=== PATIENT | male | born 1990 ===

== ENCOUNTER 2021-06-09 16:19 | Inpatient (IN) | payer SELFPAY ==
[2021-06-09 16:17] VITALS: BMI 24.4
[2021-06-09 16:51] VITALS: BP 112/78; PULSE 83; RESP 16; TEMP 36.8; O2SAT 98
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
[2021-06-09 20:41] VITALS: BP 120/77; PULSE 101; RESP 23; TEMP 37.2; O2SAT 92
[2021-06-10 06:00] VITALS: BP 119/80; PULSE 84; RESP 17; TEMP 37; O2SAT 98
--- NOTE | 2021-06-10 12:28 | NPU.GN ---
[facility] Group Topic: Depression Bingo /Worrisome thoughts General Mood of Group: Appropriate Cade participated and answered questions/ ask questions when addressed by staff.
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
[2021-06-10 14:00] VITALS: BP 124/74; PULSE 93; RESP 18; TEMP 36.6; O2SAT 98
[2021-06-10 22:00] VITALS: BP 113/70; PULSE 100; RESP 17; TEMP 36.5; O2SAT 97
[2021-06-11 06:00] VITALS: BP 112/71; PULSE 87; RESP 18; TEMP 36.6; O2SAT 99
--- NOTE | 2021-06-11 11:58 | NPU.GN ---
[facility] Topic: Self Medicating General Mood of Group: Cade appeared in good spirits and participated in group. CSS asked Cade if he knew what self medicating was and if that was something he did. Cade replied Yes because i don't have to think about what's going on at the time. CSS then asked if his choices to self medicate affected other in his life. Cade replied yes and I need to stop that's why when I go stay with my grandma I will start getting help. CSS encourage him to stick to the plan and make the changes need for a successful future.
[2021-06-11 14:00] VITALS: BP 128/78; PULSE 90; RESP 20; TEMP 36.9; O2SAT 97
[2021-06-11] MEDS: sertraline 50 mg Tablet PO (15:39)
--- NOTE | 2021-06-11 17:58 | PM.NPN ---
Subjective NPU Subjective: Interval history: Cade presents today continuing to downplay the significance of the situation at home reporting that his relationship with his girlfriend is also him and denying any major conflict between them at this point. He is not really embraced the issues surrounding his addiction and just talked everything up to robust panic attacks. He reports the medications are going well. Mental Status Exam MSE Comments: This is a well-nourished well-developed white male with hospital scrubs on and adequate grooming and eye contact. Notable ecchymosis around left eye. No abnormal movements except for mild psychomotor retardation. Cooperative with exam in no acute distress. Speech was normal rate, decreased volume. Mood described as pretty good, affect slightly subdued. Thought process organized. Thought content: Patient denied suicidal or homicidal ideation, there are no delusions reported or noted, he denied any auditory or visual hallucinations. Attention and concentration appeared intact memory was unreliable at times but none were formally tested. He is alert and oriented x3. Insight and judgment are limited and impulse control is impaired. Vitals/I&O/Wt Last Vital Signs Temp 98.3 F 06/11/21 20:12 Pulse 72 06/11/21 20:12 Resp 17 06/11/21 20:12 BP 138/71 06/11/21 20:12 Pulse Ox 97 06/11/21 20:12 A&P Additional A&P Information (1) Methamphetamine dependence: (2) Cannabis abuse: (3) Partner relational problem: (4) Anxiety and depression: This is a 31-year-old white male with a significant history of anxiety, depression, addiction with current active addiction that he is now planning with significant partner conflicts who presents off of his medication. 1. Continue current medication. 2. Continue every 15 minute checks for safety. 3. Encourage individual, group and milieu therapies. 4. Encourage sober living treatment after discharge at the highest level of care to which he is willing to commit. Involuntary Hold Information 96 Hour Hold: 96 Hour Involuntary Admission: No Attestations NPU Medical Necessity Statement*: Inpatient hospitalization is medically necessary and the clinically appropriate intervention at this time. We will monitor medications and make changes as indicated. Likely length of stay 2-4 days. Coding Level of Care Code Acute Make Up Artist for Breanne Mclean
[2021-06-11] MEDS: BuSPIRONE 10 mg Tablet 15 MG PO (20:04)
[2021-06-11 20:12] VITALS: BP 138/71; PULSE 72; RESP 17; TEMP 36.8; O2SAT 97
[2021-06-12 06:00] VITALS: BP 131/75; PULSE 75; RESP 16; TEMP 36.9; O2SAT 97
[2021-06-12] MEDS: BuSPIRONE 10 mg Tablet 15 MG PO (08:43)
[2021-06-12] MEDS: sertraline 50 mg Tablet PO (08:43)
[2021-06-12 11:55] VITALS: BP 131/75; PULSE 75; RESP 16; TEMP 36.9; O2SAT 97
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
== END 2021-06-12 15:27 | disposition home or self-care (01) | DRG 881 ==
PROVIDERS: Admitting Provider Psychiatry & Neurology Psychiatry; Visit Provider Psychiatry & Neurology Psychiatry
DX: F32.9 Major depressive disorder, single episode, unspecified (principal); F15.20 Other stimulant dependence, uncomplicated; F41.9 Anxiety disorder, unspecified; F12.10 Cannabis abuse, uncomplicated; F17.210 Nicotine dependence, cigarettes, uncomplicated; S00.12XA Contusion of left eyelid and periocular area, initial encounter; X58.XXXA Exposure to other specified factors, initial encounter; Y99.9 Unspecified external cause status; Z63.0 Problems in relationship with spouse or partner; Z71.51 Drug abuse counseling and surveillance of drug abuser